=== PATIENT | male | born 1975 | race Caucasian/White ===

== ENCOUNTER 2022-07-29 12:36 | Outpatient (CLI) | payer OTHER ==
--- NOTE | 2022-07-29 17:01 | MRI Report ---
PROCEDURE: Knee LT W/O INDICATIONS: PAIN IN LEFT KNEE TECHNIQUE: Noncontrast sagittal PD fast spin echo and T2 fast spin echo with fat saturation, sagittal 3-D gradie nt sequence with fat saturation; coronal T1 spin echo and PD fast spin echo with fat saturation, and axial PD fast spin echo with fat saturation through the knee. COMPARISON: None. FINDINGS: Image quality: Excellent. Menisci: Signal abnormality involving posterior horn of medial meniscus is seen which does not extend to articular surface to meet the criteria for focal meniscal tear. Lateral meniscus is intact. The m eniscal root ligaments appear intact. Cruciate ligaments: The anterior cruciate ligament is thickened with intrasubstance T2 hyperintense signal near its proximal insertion. The PCL is intact. Medial structures: The medial collateral ligament appears intact. The posterior oblique ligament, s emimembranosus tendon insertions, and oblique popliteal ligament, and meniscocapsular junction appear intact. Visualized portions of the pes anserinus tendons appear normal. No abnormal bursal fluid. Lateral structures: The lateral collateral ligament, long and short heads of the biceps femoris tend on appear intact. The popliteus tendon appears normal; the popliteofibular ligament appears intact. Iliotibial band appears normal. Anterior structures: Nonspecific mild soft tissue swelling along the anterior aspect of patella and patellar tendon is seen. The quadriceps and patellar tendons appear intact. Patellar alignment is no rmal. No femoral trochlear dysplasia or ventral trochlear prominence. No edema in the infrapatellar fat pad. Bones and cartilage: No bone marrow contusions or fractures. The cartilage of the medial and latera l femorotibial compartments, as well as the patellofemoral compartment, appears normal in thickness. Joint space: There is small knee joint fluid. No Gross's cyst. Normal appearing synovial plicae ar e incidentally noted. IMPRESSION: 1. Suggestion of sprain/low to moderate grade partial thickness tear involving proximal anterior cruc iate ligament. No full-thickness ACL rupture. PCL is intact. 2. Degenerative changes seen in posterior horn medial meniscus. No MR evidence of focal meniscal tear . Lateral meniscus is intact. 3. No marrow edema. No fracture or dislocation. Nonspecific subcutaneous soft tissue edema lines or a spect of patella and patella tendon. Low-grade prepatellar bursitis cannot be excluded. Small joint e ffusion. Reviewed by: Luis Connolly MD on 07/29/2022 5:00 PM PDT Approved by: Luis Connolly MD on 07/29/2022 5:00 PM PDT Station ID: [id number]
== END 2022-07-29 12:37 | disposition home or self-care (01) ==
LOC: DI 12:36
PROVIDERS: ATTEND Student in an Organized Health Care Education/Training Program
DX: M17.12 Unilateral primary osteoarthritis, left knee (principal); M25.462 Effusion, left knee; R60.0 Localized edema

== ENCOUNTER 2022-10-22 13:06 | Outpatient (CLI) | payer OTHER ==
[2022-10-22 13:50] VITALS: BP 148/96
--- NOTE | 2022-10-22 13:50 | SLEEP CARE CONSULTATION ---
Information from patient questionnaire entered by Negra Christine. I have reviewed and concur with the information entered by Negra Christine. This document represents the service I personally performed and the decisions made by me, Gabriella Cho ARNP. History of Present Illness Service Date and Time: 10/22/2022 1306 Reason for Visit: New patient Chief Complaint: reports: Snoring, Excessive daytime sleepiness, Observed pauses in breathing, Fatigue, Frequent awakenings at night Date of Onset: 3-4 YRS Usual bedtime: 10-11 PM Time it takes to fall asleep: 5-10 MIN Snores at night: Yes Observed to quit breathing while asleep: Yes Sleeps alone due to snoring: No Number of times waking at night: 3-4 Reasons for waking at night: reports: Other (UNKNOWN reasons). denies: Choking, Snoring, Gasping for air Toss, Turn, or Twitch while sleeping: Yes (flail in sleep at times) Recalls having dreams: No (very seldom, last one was a bad dream) Usually gets out of bed at: [id number]; weekend 0730 Feels refreshed in the morning: No Morning headache: No Sleepy or fatigued during the day: Yes Ever fallen asleep while driving: Yes (drowsy driving after work, 1.5 hr commute; no accidents) Takes day naps: Yes (weekends at least once a day, for about an hour) Dreams during day naps: No Prior sleep studies: No Additional HPI information: I had the pleasure of seeing RIOS BONDS today regarding the possibility of him having a sleep disorder. His current complaints are snoring, excessive daytime sleepiness, observed pauses in breathing, fatigue and frequent night awakenings. He states he is constantly fatigued and has to take naps. His is now telling him his "breathing pattern" changes when he falls asleep. He is snoring more now according to . 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 Patient is and lives in [place]. Have you smoked in the past 12 months: No Alcohol use: Yes Alcohol amount and frequency: 2-3 DRINKS DAILY/EVENING Caffeine use: Yes Caffeine amount and frequency: 16OZ COFFEE AND ENERGY DAILY Family History Family history of sleep disordered breathing: Yes Family Hx Sleep Apnea: Sibling: Snoring Allergies and Home Medications Known drug allergies: No Drug allergies reviewed: Yes (NKDA) Home medication list reviewed: Yes Allergy and home medication list: Medications Mobic Gabapentin, prn Review of Systems Weight gain over past 5 years: 15 Cardiovascular: reports: high blood pressure (noted at visits) Respiratory: reports: chronic cough (comes and goes) Gastrointestinal: denies: heartburn Neurological: denies: headaches, head trauma Psychiatric: denies: anxiety, depression, mood disorder Ear/Nose/Throat: reports: wisdom teeth removed, other (FILM IN THROAT ). denies: tonsillectomy Musculoskeletal: reports: joint pain Physical Exam Vital signs obtained and entered by: NEGRA Tucker MA Blood Pressure: 148/96 (left arm) Cuff size: regular Heart Rate: 83 O2 Saturation: 97 Height: 5 ft 10.5 in Weight: 186 lb 6.4 oz (with boots/clothes on) Body Mass Index: 26.4 BMI Classification: Overweight Neck circumference: 15.75 Mouth and throat: normal Soft palate: long Hard palate: normal Uvula: normal Uvula visualization: 100% Mallampati Class I Tongue: enlarged in size with teeth gregory on lateral edges Tonsils: small Neck: normal w/o lymphadenopathy or thyromegaly Heart: regular rate and rhythm Lungs: clear bilaterally Impression and Plan 1. Suspected Obstructive Sleep Apnea-Hypopnea Syndrome, as suggested by a history of loud and irregular snoring, observed cessation of breath while asleep, frequent awakening during the night, unrefreshed sleep, cognitive impairment, and excessive daytime sleepiness. Narrow oropharynx and obesity are common predisposing factors for obstructive sleep apnea-hypopnea syndrome. I re commend proceeding to polysomnography to confirm the diagnosis and to assess severity. If the patient has significant sleep disordered breathing, a manual CPAP titration study will also be performed to find the optimal treatment pressure. I informed the patient of what the sleep studies involve and after some discussion, obtained agreement to proceed. The pathophysiology of obstructive sleep apnea-hypopnea syndrome was discussed with the patient and health risks of cardiovascular and cerebrovascular disease if not treated. 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 Patient agreed to plan. * Schedule polysomnography * Avoid long distance driving or driving when feeling sleepy. * Avoid alcohol, sedative and muscle relaxant around bedtime. * Attempt to lose weight. * Review instructions provided by trained office staff on how to prepare for the sleep study. * Return for follow-up after sleep study completed. Counseling Topics: Weight loss health impact Visit Type: In Office Time Spent with Patient (minutes): 30 Provider Statement: I spent 100% of the Face to Face Visit with the patient with greater than 50% spent counseling the patient and coordination of care.
== END 2022-10-22 13:07 | disposition home or self-care (01) ==
LOC: SC 13:06
PROVIDERS: ATTEND Nurse Practitioner Family
DX: R06.83 Snoring (principal); R06.81 Apnea, not elsewhere classified; G47.8 Other sleep disorders; R41.89 Other symptoms and signs involving cognitive functions and awareness; G47.10 Hypersomnia, unspecified
CPT/HCPCS: 99203; 99212

== ENCOUNTER 2022-11-11 20:27 | Outpatient (CLI) | payer OTHER | END 2022-11-11 20:28 | disposition home or self-care (01) | LOC: SC 20:27 | PROVIDERS: ATTEND Nurse Practitioner Family | DX: G47.33 Obstructive sleep apnea (adult) (pediatric) (principal) | CPT/HCPCS: 95810 ==

== ENCOUNTER 2022-11-26 08:19 | Outpatient (CLI) | payer OTHER ==
[2022-11-26 08:50] VITALS: BP 142/98
--- NOTE | 2022-11-26 08:50 | SLEEP CARE CONSULTATION ---
Information from patient questionnaire entered by Negra Christine. I have reviewed and concur with the information entered by Negra Christine. This document represents the service I personally performed and the decisions made by , Gabriella Cho ARNP. History of Present Illness Service Date and Time: 11/26/2022818 Initial Thornton Sleepiness Scale score: 15 (10/22/22) Current Thornton Sleepiness Scale score: 15 (11/26/22) Additional HPI information: RIOS BONDS returns for follow up and results of the recently performed polysomnography. I explained the pathophysiology behind obstructive sleep apnea. We then spent quite a bit of time discussing different treatment options. For mild obstructive sleep apnea, surgery and oral appliance are alternatives to nasal CPAP therapy but in moderate or severe cases, nasal CPAP is the most effective and reliable treatment. Because apnea is primarily in supine position, then positional management therapy could be effective. Methods discussed such as positioning with pillows to prevent supine sleep. I reviewed the impact of weight changes on sleep apnea and strongly recommended losing weight. After some discussion, the patient opted to go with the nasal CPAP therapy. Nasal autoCPAP set at 4-15 cmH20 will be ordered with rationale explained. A manual titration study will be ordered if unable to find optimal pressure with office adjustments. I explained how CPAP machine works and what to expect when using the machine. Using CPAP every night in order to get used to it was emphasized. Patient advised to put CPAP mask on before getting into bed so as not to fall asleep without CPAP. To assist acclimation to CPAP use, it could also be used for a short time during day while reading or watching TV. The patient was instructed to call the CPAP supplier to discuss any mechanical problem that may occur. If the mask given is uncomfortable or is difficult to keep on through the night even with adjustment, contact the CPAP supplier as many will replace with another mask style if notified before 30 days. If snoring or perceives is not getting enough air or too much air from the machine, notify this office. Patient counseled not drink alcohol less than 4 hours before bedtime as it can increase snoring and apnea. Patient was cautioned about risks of drowsy driving until sleepiness symptoms resolve. Sleep Study - Results Type of Sleep Study: Polysomnography (COMPLETED 11/11/22) Prior sleep studies: No Polysomnography/Home Sleep Study results: IMPRESSION: The quality of the study is fair due to partial loss of airflow signals. The patient had normal sleep efficiency. The sleep architecture was abnormal for sleep fragmentation and reduced amount of time spent in slow wave sleep (N3). Respiratory monitoring showed mild obstructive sleep apnea- hypopnea (AHI = 7.5) associated with frequent arousals, oxyhemoglobin desaturation but not hypoxia (bennie oxygen saturation of 90%). The respiratory events occurred almost exclusively during supine sleep (supine AHI = 16.4; non-supine = 4.65). No audible snore. There was no significant periodic leg movement of sleep. Cardiac rhythm was normal sinus rhythm without significant arrhythmia. No abnormal behavior (parasomnia) observed during the night. Allergies and Home Medications Drug allergies reviewed: Yes (NKDA) Home medication list reviewed: Yes (no changes) Review of Systems Review of systems same as previous: Yes (no changes) Physical Exam Vital signs obtained and entered by: NEGRA Tucker MA Blood Pressure: 142/98 (LEFT ARM) Cuff size: regular Heart Rate: 76 O2 Saturation: 99 Height: 5 ft 10.5 in Weight: 180 lb Body Mass Index: 25.4 BMI Classification: Overweight Impression and Plan 1. Obstructive Sleep Apnea-Hypopnea Syndrome, mild, with lowest oxygen saturation of 90%. Obviously this is the cause of the patients symptoms of unrefreshed sleep, and excessive daytime sleepiness. As mentioned above, the patient will be started on nasal autoCPAP therapy with pressure set at 4-15 cmH2 O. Compliance guidelines also reviewed. A copy of compliance guidelines will be given for reference at check out. Because the apnea is more severe supine, I instructed to avoid sleeping supine using pillow positioning until able to start CPAP use. * Nasal auto CPAP therapy, pressure at 4-15 cm H2O. * Attempt to lose weight. * Avoid alcohol consumption near bedtime. * Avoid supine sleep until using CPAP. * The patient is again cautioned about driving until sleepiness completely resolves. * Return one month after CPAP obtained. I will assess response to therapy and compliance at that time. Counseling Topics: Spare mask, Weight control Visit Type: In Office Time Spent with Patient (minutes): 21 Provider Statement: I spent 100% of the Face to Face Visit with the patient with greater than 50% spent counseling the patient and coordination of care.
== END 2022-11-26 08:20 | disposition home or self-care (01) ==
LOC: SC 08:19
PROVIDERS: ATTEND Nurse Practitioner Family
DX: G47.33 Obstructive sleep apnea (adult) (pediatric) (principal)
CPT/HCPCS: 99212; 99213

== ENCOUNTER 2023-02-11 12:53 | Outpatient (CLI) | payer OTHER ==
--- NOTE | 2023-02-11 13:22 | SLEEP CARE CONSULTATION ---
Information from patient questionnaire entered by Negra Christine. I have reviewed and concur with the information entered by Negra Christine. This document represents the service I personally performed and the decisions made by , Gabriella Cho ARNP. History of Present Illness Service Date and Time: 02/11/2023 1253 Previous diagnosis: Mild, Obstructive Sleep Apnea-Hypopnea Syndrome AHI: 7.5 (in 2022) Reason for follow up: first compliance Equipment type: CPAP (RESMED Airsense 10, s/u 11/2022) Equipment obtained from: Other ([facility], got initial supplies) Mask style: Nasal Mask brand: Respironics ([place] [employer]) Backup mask available: No (will keep old mask when replaced) Last cushion change: 1 month Prior sleep studies: No Type of Sleep Study: Polysomnography (COMPLETED 11/11/22) HPI additional information: RIOS BONDS was diagnosed to have mild, AHI 7.5, obstructive sleep apnea- hypopnea syndrome and returned today for CPAP therapy first compliance follow- up. Sleep Study - Results Type of Sleep Study: Polysomnography (COMPLETED 11/11/22) Prior sleep studies: No CPAP Compliance Data - Data Reviewed with Patient Average duration of nightly device use: 5 HRS 7 MINS Compliance rate %: 97 (01/11/23-02/09/23; 30 days used) Current pressure setting (cmH2O): 4-15 (median 4.7, avg 5.9, max 6.6) Average residual AHI: 6.3 Central apnea: 4.8 Obstructive apnea: 0.2 Average large leak: 1.4 lpm Subjective Patient concerns: reports: mask discomfort (some), mask leak noise (some). denies: aerophagia, air blowing in eyes, condensation in mask/hose, nasal congestion, dry mouth, nose, throat, epistaxis Observed to snore while using device: No Current pressure setting perceived as: comfortable On therapy, patient: reports: awakening more refreshed, being more awake and alert during the day, more rested overall. denies: sleeping better Initial [place] Sleepiness Scale score: 15 (10/22/22) Current [place] Sleepiness Scale score: 6 (02/11/23) Allergies and Home Medications Known drug allergies: No Drug allergies reviewed: Yes Home medication list reviewed: Yes (no changes) Allergy and home medication list: Allergies No Known Drug Allergies Allergy (Verified 02/10/23 13:31) Review of Systems Review of systems same as previous: Yes (no changes) Physical Exam Vital signs obtained and entered by: NEGRA Tucker MA Blood Pressure: 130/90 (LEFT ARM) Cuff size: regular Heart Rate: 88 O2 Saturation: 98 Height: 5 ft 10.5 in Weight: 183 lb 12.8 oz (with boots/clothes on) Body Mass Index: 25.9 BMI Classification: Overweight Impression and Plan 1. Obstructive Sleep Apnea-Hypopnea Syndrome, mild, with good treatment compliance and fair apnea control with elevated residual AHI. His central index is elevated at 4.8 and obstructive index at 0.2. The patients pressure will be changed to autoCPAP 4-5 cmH20 for elevation of residual AHI. Patient advised to contact me if pressure change is uncomfortable so that it can be adjusted. Goals for apnea control discussed.On CPAP therapy, the patient has better sleep quality and is more rested overall. Patient's apnea severity and rationale for treatment to reduce apnea, improve sleep quality and reduce cardiovascular and cerebrovascular events was reviewed. 2. Overweight, unspecified. Currently patients BMI is 25.9. Obesity increases the risk of apnea, CPAP pressure requirements and overall health risks especially cardiovascular and diabetes. Thus patient is advised to lose weight. * Change auto CPAP pressure to 4-5 cmH2O * Notify me if snoring with mask or feeling that the pressure is too much or too little * Attempt to lose weight * Call this office if any problems using CPAP * Return for follow up in 1-2 months, or sooner if concerns arise Counseling Topics: Spare mask, Weight loss health impact Visit Type: In Office Time Spent with Patient (minutes): 20 Provider Statement: I spent 100% of the Face to Face Visit with the patient with greater than 50% spent counseling the patient and coordination of care.
[2023-02-11 13:45] VITALS: BP 130/90
--- NOTE | 2023-02-11 15:05 | Sleep Patient Instructions ---
Sleep Center Visit Summary - Patient Visit Information Reason for Visit: First compliance - Patient Instructions Instructions Attached: CPAP Additional Instructions: Changed pressure follow up in 1-2 months - Clinic Information Contact: [facility] [address] [place] [id number] [email or web address] T: [phone]
== END 2023-02-11 12:54 | disposition home or self-care (01) ==
LOC: SC 12:53
PROVIDERS: ATTEND Nurse Practitioner Family
DX: G47.33 Obstructive sleep apnea (adult) (pediatric) (principal); E66.3 Overweight; Z68.25 Body mass index [BMI] 25.0-25.9, adult
CPT/HCPCS: 99212; 99213

== ENCOUNTER 2023-03-18 12:48 | Outpatient (CLI) | payer OTHER ==
--- NOTE | 2023-03-18 13:25 | Sleep Patient Instructions ---
Sleep Center Visit Summary - Patient Visit Information Reason for Visit: 2 month followup for CPAP therapy - Patient Instructions Additional Instructions: You were here for follow up of CPAP therapy. You will be changed to CPAP therapy with pressure at 6-7 cmH2O. Please let us know if the pressure change is uncomfortable and we can make further adjustments of the pressure. You should follow up with sleep care in 1-2 months. You may contact us sooner for any questions or concerns. - Clinic Information Contact: [facility] [address] [place] [address] [email or web address] T: [phone]
--- NOTE | 2023-03-18 13:28 | SLEEP CARE CONSULTATION ---
Information from patient questionnaire entered by Negra Christine. I have reviewed and concur with the information entered by Negra Christine. This document represents the service I personally performed and the decisions made by , Gabriella Cho ARNP. History of Present Illness Service Date and Time: 03/18/2023 1248 Previous diagnosis: Mild, Obstructive Sleep Apnea-Hypopnea Syndrome AHI: 7.5 (in 2022) Reason for follow up: other (2 MONTH F/U) Equipment type: CPAP (RESMED Airsense 10, s/u 11/2022) Equipment obtained from: Other ([facility], [employer]) Mask style: Nasal Mask brand: Respironics ([employer]) Backup mask available: Yes (old mask) Last cushion change: couple weeks Prior sleep studies: No Type of Sleep Study: Polysomnography (COMPLETED 11/11/22) HPI additional information: RIOS BONDS was diagnosed to have mild, AHI 7.5, obstructive sleep apnea- hypopnea syndrome and returned today for CPAP therapy two month follow-up. Sleep Study - Results Type of Sleep Study: Polysomnography (COMPLETED 11/11/22) Prior sleep studies: No CPAP Compliance Data - Data Reviewed with Patient Average duration of nightly device use: 4 HRS 52 MINS Compliance rate %: 78 (01/16/23-03/16/23; 54/60 days used) Current pressure setting (cmH2O): 4-5 (median 4.6, avg 5.4, max 5.7) Average residual AHI: 6.8 Central apnea: 4.8 Obstructive apnea: 0.4 Hypopnea: 1.3 Average large leak: 2.0 L/min Subjective Missed days of use due to: reports: travel (camping) Patient concerns: reports: mask discomfort (sometimes). denies: aerophagia, air blowing in eyes, mask leak noise, condensation in mask/hose, nasal congestion, dry mouth, nose, throat, epistaxis Observed to snore while using device: No Current pressure setting perceived as: comfortable On therapy, patient: reports: sleeping better, awakening more refreshed, being more awake and alert during the day, more rested overall. denies: drowsiness while driving Initial Effie Sleepiness Scale score: 15 (10/22/22) Current Effie Sleepiness Scale score: 8 (03/18/23) Allergies and Home Medications Known drug allergies: No Drug allergies reviewed: Yes Home medication list reviewed: Yes (no changes) Allergy and home medication list: Allergies No Known Drug Allergies Allergy (Verified 03/17/23 10:41) Review of Systems Review of systems same as previous: Yes (no changes) Physical Exam Vital signs obtained and entered by: Florian FRENCH Blood Pressure: 132/80 (LEFT ARM) Cuff size: regular Heart Rate: 77 O2 Saturation: 98 Height: 5 ft 10.5 in Weight: 188 lb 12.8 oz Body Mass Index: 26.6 BMI Classification: Overweight Impression and Plan 1. Obstructive Sleep Apnea-Hypopnea Syndrome, mild, with good treatment compliance and fair apnea control with elevated residual AHI. His central index is 4.8, obstructive index 0.4 and hypopnea index 1.3. The average pressure used is 5.4 cmH2O. On CPAP therapy, the patient has better sleep quality and is more rested overall. The patients pressure will be changed to autoCPAP 6-7 cmH20 for elevation of residual AHI. Patient advised to contact me if pressure change is uncomfortable so that it can be adjusted. Goals for apnea control discussed. Patient's apnea severity and rationale for treatment to reduce apnea, improve sleep quality and reduce cardiovascular and cerebrovascular events was reviewed. 2. Overweight, unspecified. Currently patients BMI is 26.6. Obesity increases the risk of apnea, CPAP pressure requirements and overall health risks especially cardiovascular and diabetes. Thus patient is advised to lose weight. * Change auto CPAP pressure to 6-7 cmH2O * Notify me if snoring with mask or feeling that the pressure is too much or too little * Attempt to lose weight * Call this office if any problems using CPAP * Return for follow up in 1-2 months, or sooner if concerns arise Counseling Topics: Spare mask, Weight loss health impact Visit Type: In Office Time Spent with Patient (minutes): 21 Provider Statement: I spent 100% of the Face to Face Visit with the patient with greater than 50% spent counseling the patient and coordination of care.
[2023-03-18 13:55] VITALS: BP 132/80
== END 2023-03-18 12:49 | disposition home or self-care (01) ==
LOC: SC 12:48
PROVIDERS: ATTEND Nurse Practitioner Family
DX: G47.33 Obstructive sleep apnea (adult) (pediatric) (principal); E66.3 Overweight; Z68.26 Body mass index [BMI] 26.0-26.9, adult
CPT/HCPCS: 99212; 99213

== ENCOUNTER 2023-04-22 12:50 | Outpatient (CLI) | payer OTHER ==
--- NOTE | 2023-04-22 13:24 | SLEEP CARE CONSULTATION ---
Information from patient questionnaire entered by Negra Christine. I have reviewed and concur with the information entered by Negra Christine. This document represents the service I personally performed and the decisions made by , Gabriella Cho ARNP. History of Present Illness Service Date and Time: 04/22/2023 1250 Previous diagnosis: Mild, Obstructive Sleep Apnea-Hypopnea Syndrome AHI: 7.5 (in 2022) Reason for follow up: one month (F/U) Equipment type: CPAP (RESMED Airsense 10, s/u 11/2022) Equipment obtained from: Other ([facility] [employer], [employer]) Mask style: Nasal Mask brand: Respironics ([employer]) Backup mask available: Yes (old mask) Last cushion change: last week Prior sleep studies: No Type of Sleep Study: Polysomnography (COMPLETED 11/11/22) HPI additional information: YARIEL BONDS was diagnosed to have mild, AHI 7.5, obstructive sleep apnea- hypopnea syndrome and returned today for CPAP therapy one month follow-up. Sleep Study - Results Type of Sleep Study: Polysomnography (COMPLETED 11/11/22) Prior sleep studies: No CPAP Compliance Data - Data Reviewed with Patient Average duration of nightly device use: 5 HRS 43 MINS Compliance rate %: 90 (03/22/23-04/20/23; 29/30 days used) Current pressure setting (cmH2O): 6-7 (95% avg 6.7) Average residual AHI: 7.4 Central apnea: 5.9 Obstructive apnea: 0.6 Hypopnea: 0.5 Subjective Patient concerns: reports: mask discomfort (some). denies: aerophagia, air blowing in eyes, mask leak noise, condensation in mask/hose, nasal congestion, dry mouth, nose, throat, epistaxis Observed to snore while using device: No Current pressure setting perceived as: comfortable On therapy, patient: reports: sleeping better, awakening more refreshed, being more awake and alert during the day, more rested overall. denies: drowsiness while driving Initial [place] Sleepiness Scale score: 15 (10/22/22) Current [place] Sleepiness Scale score: 10 (04/22/23) Allergies and Home Medications Known drug allergies: No Drug allergies reviewed: Yes Home medication list reviewed: Yes (HCTZ) Allergy and home medication list: Allergies No Known Drug Allergies Allergy (Verified 04/21/23 11:03) Review of Systems Review of systems same as previous: Yes (hypertension) Physical Exam Vital signs obtained and entered by: NEGRA Tucker MA Blood Pressure: 138/86 (LEFT ARM) Cuff size: regular Heart Rate: 69 O2 Saturation: 98 Height: 5 ft 10.5 in Weight: 187 lb 6.4 oz Body Mass Index: 26.5 BMI Classification: Overweight Impression and Plan 1. Obstructive Sleep Apnea-Hypopnea Syndrome, mild, with good treatment compliance and fair apnea control with elevated residual AHI. On CPAP therapy, the patient has better sleep quality and is more rested overall. He has noted a slight increase in his afternoon fatigue in the last month since I adjusted hi pressure to 6-7 cmH2O. I reviewed his therapy report. Yariel's AHI is comprised of central index 5.9, obstructive index 0.6 and hypopnea index 0.5. His AHI is more elevated with last pressure adjustment. The patients pressure will be changed to CPAP 4 cmH20 for elevation of residual AHI to try to reduce central index. Patient advised to contact me if pressure change is uncomfortable so that it can be adjusted. Goals for apnea control discussed. Because of the high central events noted during CPAP therapy, It would be beneficial to have him in for a titration study to determine optimal therapy pressure. However he is moving out of the area on the th of this month. I advised him to establish with a sleep provider there to follow up on his pressures and apnea control. He voiced understanding. Patient's apnea severity and rationale for treatment to reduce apnea, improve sleep quality and reduce cardiovascular and cerebrovascular events was reviewed. 2. Overweight, unspecified. Currently patients BMI is 26.5. Obesity increases the risk of apnea, CPAP pressure requirements and overall health risks especially cardiovascular and diabetes. Thus patient is advised to lose weight. * Change CPAP pressure to 4 cmH2O * Notify me if snoring with mask or feeling that the pressure is too much or too little * Attempt to lose weight * Call this office if any problems using CPAP * Return for follow up as needed if concerns arise before leaving area Counseling Topics: Spare mask, Weight loss health impact Visit Type: In Office Time Spent with Patient (minutes): 22 Provider Statement: I spent 100% of the Face to Face Visit with the patient with greater than 50% spent counseling the patient and coordination of care.
[2023-04-22 13:41] VITALS: BP 138/86
== END 2023-04-22 12:51 | disposition home or self-care (01) ==
LOC: SC 12:50
PROVIDERS: ATTEND Nurse Practitioner Family
DX: G47.33 Obstructive sleep apnea (adult) (pediatric) (principal); E66.3 Overweight; Z68.26 Body mass index [BMI] 26.0-26.9, adult
CPT/HCPCS: 99212; 99213